=== PATIENT | female | born 1985 | race Caucasian/White ===

== ENCOUNTER 2017-12-14 21:20 | Emergency (ER) | payer OTHER ==
[~2017-12-14] VITALS: Ht 157.5 cm; Wt 59.0 kg
--- NOTE | ~2017-12-14 | EKG ---
[address] [address] ELECTROCARDIOGRAM REPORT Name: RHONDA MAGANA Room #: [facility]ALSrid[facility] [id number] Admission: 12/14/17 Attend Phys: Discharge: 12/15/17 Date of : 85 Report #: [id number] THIS REPORT FOR: //name// [facility] ED Test Date: 2017-12-14 Test Time: 21:58:46 Pat Name: RHONDA MAGANA Department: Room: Gender: F [employer] Operator: MZOOK : 1985 Requested By: Jaswant Mendez Order Number: [id number] MD: Cezar Wheeler Measurements Intervals [place] Rate: 74 P: 75 AK: 140 QRS: 56 QRSD: 84 T: 67 QT: 396 QTc: 440 Interpretive Statements Sinus rhythm No previous ECG available for comparison Electronically Signed On 12-16-2017 17:34:39 CDT by Cezar Wheeler [email or web address] <ELECTRONICALLY SIGNED> By: Cezar Wheeler MD 12/16/17 1734 [id number] MD DALIA Mike
[~2017-12-14 21:20] MED LIST: APAP500; DERMOPLAST SPRA56 ML; HYDROCORTISONE30 G9; IBUPROFEN 600600 M1; LANOLIN56 GM; NORCO 5-325 TA1 EACH; TUCKS1 EAC1
[2017-12-14 23:41] LABS: HEMATOCRIT 39.5 % (37.0-47.0); HEMOGLOBIN 13.5 gm/dL (12.0-15.0); MCH 27.7 pg (26.0-34.0); MCHC 34.2 g/dL (28.0-37.0); RBC 4.88 mil/uL (4.20-5.00); RDW 14.7 % (10.5-14.5); WBC 10.5 thou/uL (4.0-11.0)
[2017-12-14 23:49] LABS: ANION GAP 7 mmol/L (7-16); BUN 11 mg/dL (7-18); CALCIUM 9.7 mg/dL (8.5-10.1); CHLORIDE 101 mmol/L (98-107); CO2 28 mmol/L (21-32); CREATININE 0.7 mg/dL (0.6-1.0); GLUCOSE 94 mg/dL (74-106); POTASSIUM 3.5 mmol/L (3.5-5.1); SODIUM 136 mmol/L (136-145)
[2017-12-14 23:58] LABS: ALBUMIN 4.1 g/dL (3.4-5.0); SGOT 17 U/L (15-37); SGPT 20 U/L (30-65); TOTAL BILIRUBIN 0.4 mg/dL (<0.1-1.0); TOTAL PROTEIN 8.6 g/dL (6.4-8.2); TROPONIN-I <0.06 ng/mL (<0.06)
[2017-12-15] MEDS ORDERED: PROTONIX40 MG PO (02:01)
[2017-12-15 02:26] VITALS: BP 98/62
== END 2017-12-15 02:27 | disposition home or self-care (01) ==
LOC: ER 21:20
PROVIDERS: Emergency Medicine
DX: R07.89 Other chest pain (principal)